=== PATIENT | male | born 1980 | race African-American/Black ===

== ENCOUNTER → 2017-09-14 15:02 | Outpatient (CLI) | payer MEDICAID ==
[~2017-09-14 15:02] MED LIST: VENTOLIN HFA18 GM INH; ZANAFLEX4 MG PO
[2017-09-28 08:38] VITALS: BMI 28.3
== END | disposition home or self-care (01) ==
LOC: D.MRI 15:02
DX: M54.5 Low back pain (principal)

== ENCOUNTER → 2017-09-28 06:32 | Outpatient (CLI) | payer MEDICAID ==
[~2017-09-28] VITALS: Ht 167.6 cm; Wt 79.5 kg
[2017-09-28 06:56] LABS: BASOPHILS 0.3 % (0-2); EOSINOPHILS 9.5 % (0-7); HEMATOCRIT 42.5 % (42.0-54.0); HEMOGLOBIN 15.2 g/dL (13.5-17.5); IMMATURE GRANULOCYTES 0.2 % (0-5); MCH 34.3 pg (26.0-34.0); MCHC 35.8 g/dL (31.0-37.0); MCV 95.9 fL (80.0-100.0); MEAN PLATELET VOLUME 10.8 fL (7.4-10.4); PLATELET COUNT 148 10x3/uL (130-400); RBC 4.43 10x6/uL (4.20-6.10); RDW 11.5 % (11.5-14.5); WBC 6.1 10x3/uL (4.8-10.8)
[2017-09-28 07:04] LABS: APTT 31.7 SECONDS (22.8-39.4)
[2017-09-28 07:05] LABS: INR 0.98 (0.85-1.17); PROTIME 12.6 SECONDS (11.6-15.0)
[2017-09-28 07:23] LABS: ANION GAP 11.2 mmol/L (8-16); CALCIUM 8.5 mg/dL (8.5-10.1); CARBON DIOXIDE 30.3 mmol/L (21.0-32.0); CREATININE - SERUM 1.3 mg/dL (0.6-1.3); POTASSIUM - SERUM 4.5 mmol/L (3.5-5.1)
[2017-09-28 08:38] VITALS: BP 121/84; Ht 167.6 cm; Wt 79.5 kg
== END | disposition home or self-care (01) ==
LOC: D.SP 06:32 → D.CT 14:00 → D.SP 14:00
PROVIDERS: General Practice
DX: D64.9 Anemia, unspecified (principal); Z01.812 Encounter for preprocedural laboratory examination

== ENCOUNTER 2018-09-18 18:31 | Emergency (ER) | payer MEDICAID ==
[~2018-09-18] VITALS: Ht 167.6 cm; Wt 68.2 kg
[2018-09-18 19:00] VITALS: Ht 167.6 cm; Wt 68.2 kg
[2018-09-19 00:59] VITALS: BP 106/63
== END 2018-09-18 20:38 | disposition home or self-care (01) ==
LOC: D.ER 18:31
DX: F07.81 Postconcussional syndrome (principal)